=== PATIENT | male | born 1940 | race Caucasian/White ===

== ENCOUNTER 2022-05-23 03:04 | Inpatient (IN) | payer OTHER, MEDICAID ==
[~2022-05-23] VITALS: Ht 175.3 cm; Wt 65.8 kg
[2022-05-23 03:08] VITALS: BP 138/70
--- NOTE | 2022-05-23 03:08 | NUR ---
Patient placed on bed 11.
[2022-05-23] MEDS ORDERED: NACL 0.9% 1,000 ML IV ONE (03:10)
[2022-05-23] MEDS ORDERED: FLUT1POW3 IH (03:21)
[2022-05-23] MEDS ORDERED: ALEN70TA85 PO (03:21)
[2022-05-23] MEDS ORDERED: AMLO10TA PO (03:21)
[2022-05-23] MEDS ORDERED: CARB1TAB35 PO (03:21)
[2022-05-23] MEDS ORDERED: OMEP20EC11 PO (03:21)
[2022-05-23] MEDS ORDERED: ESCI-28 PO (03:21)
[2022-05-23] MEDS ORDERED: NORT10CA17 PO (03:21)
[2022-05-23] MEDS ORDERED: TRAM50TA3 PO (03:21)
[2022-05-23] MEDS ORDERED: FINA5TAB1 PO (03:21)
[2022-05-23] MEDS ORDERED: DOXA4TAB PO (03:21)
[2022-05-23 03:31] LABS: BASOPHILS % (AUTO) 0.5 % (0.0-2.0); EOSINOPHILS % (AUTO) 0.1 % (0.0-4.0); HEMATOCRIT 39.9 % (36-52); HEMOGLOBIN 13.6 g/dL (12.0-18.0); LYMPHOCYTES # (AUTO) 1.3 K/uL (2.0-11.5); LYMPHOCYTES % (AUTO) 17.4 % (20.5-51.1); MEAN CORPUSCULAR HEMOGLOBIN 32 pg (27-31); MEAN CORPUSCULAR HGB CONC 34 g/dL (33-37); MEAN CORPUSCULAR VOLUME 93.7 fL (80-94); MONOCYTES # (AUTO) 1.2 K/uL (0.8-1.0); MONOCYTES % (AUTO) 15.8 % (1.7-9.3); NEUTROPHILS % (AUTO) 66.2 % (42.2-75.2); PLATELET COUNT (AUTO) 253 K/uL (140-450); RED BLOOD CELL COUNT(AUTO) 4.26 MIL/uL (4.20-6.10); RED CELL DISTRIBUTION WIDTH 13.1 % (11.6-13.7); WHITE BLOOD COUNT (AUTO) 7.5 K/uL (4.8-10.8)
[2022-05-23 03:38] LABS: ALBUMIN 3.1 g/dL (3.4-5.0); ANION GAP 10.2 (8-16); ASPARTATE AMINOTRANSFERASE 30 U/L (15-37); CARBON DIOXIDE 29.3 mmol/L (21-32); CHLORIDE 101 mmol/L (98-107); CREATININE 1.2 mg/dL (0.6-1.3); GLUCOSE 100 mg/dL (74-106); POTASSIUM 4.5 mmol/L (3.5-5.1); SODIUM SERUM 136 mmol/L (136-145); TOTAL BILIRUBIN 0.3 mg/dL (0.0-1.0); UREA NITROGEN, BLOOD 24 mg/dL (7-18)
--- NOTE | 2022-05-23 04:07 | NUR ---
URINE COLLECTED AND WALKED TO LAB
[2022-05-23 04:10] LABS: APPEARANCE,URINE HAZY (CLEAR); BILIRUBIN,URINE NEGATIVE (NEGATIVE); BLOOD, URINE 3+ (NEGATIVE); COLOR,URINE BROWN (YELLOW); LEUKOCYTE ESTERASE ,URINE NEGATIVE (NEGATIVE); NITRITE, URINE NEGATIVE (NEGATIVE); UGLUCOSE NEGATIVE (NEGATIVE)
[2022-05-23] MEDS ORDERED: HYDROcodone/APAP 5/325 MG 1 TAB TAB PO ONE (04:10)
[2022-05-23 04:14] LABS: RBC,URINE TOO NUMEROUS TO COUN /HPF (0-5); WBC,URINE 0-5 /HPF (0-5)
[2022-05-23] MEDS ORDERED: cefTRIAXone 1,000 MG VIAL ONE (04:32)
[2022-05-23] MEDS ORDERED: MORPHINE SULFATE 2 MG/ML SYR IVP PRN ×2 (04:40→07:05)
--- NOTE | 2022-05-23 04:44 | NUR ---
SWABS COLLECTED AND WALKED TO LAB
--- NOTE | 2022-05-23 06:21 | NUR ---
Patient will be admitted to care of [facility] [place]. Admited to MED-SUR[facility]. Will go to room 115. Belongings list completed. Report to JERONIMO JOYCE.
[2022-05-23 06:43] VITALS: BP 118/60
--- NOTE | 2022-05-23 06:45 | NUR ---
RECEIVED PT FROM ER / AUDREY , REMIGIO , BLIND , TRANSFER TO BED SAFELY . IV SITE INTACT AND PATENT , DENIES PAIN AT THIS TIME , O2 SAT WNL - RA , PLAN OF CARE DISCUSSED AND VERBALIZES UNDERSTANDING , PUT PT ON FALL PREC. PROTOCOL , CALL LIGHT WITHIN REACH , BED ALARM ON . WILL ENDORSE .
[2022-05-23] MEDS ORDERED: LORazepam 2 MG/ML VIAL IVP PRN (07:05)
[2022-05-23] MEDS ORDERED: ZOLPIDEM 10 MG TAB PO PRN (07:05)
[2022-05-23] MEDS ORDERED: MAG SULF 2000 MG/WATER PREMIX 50 ML IV PRN (07:05)
[2022-05-23] MEDS ORDERED: DOCUSATE SODIUM 100 MG GELCAP PO PRN (07:05)
[2022-05-23] MEDS ORDERED: ACETAMINOPHEN 325 MG TAB PO PRN (07:05)
[2022-05-23] MEDS ORDERED: ONDANSETRON 4 MG/2 ML VIAL IVP PRN (07:05)
[2022-05-23] MEDS ORDERED: POTASSIUM CHLORIDE 10 MEQ TABER PO PRN (07:05)
--- NOTE | 2022-05-23 07:16 | NUR ---
ENDORSED PT FOR CONT. OF CARE .
--- NOTE | 2022-05-23 07:20 | NUR ---
RECIEVED REPORT FROM COMPANION CAREGIVER NURSE FOR CONTINUITY OF CARE. NO SIGNS OF DISTRESS AT THIS TIME OR LABORED BREATHING. PT IS A&OX3, IS ON RA WITH DIMISHED LUNG SOUNDS AND A COUGH, SKIN INTACT, PT IS BLIND BUT STILL AMBULATES WITH MINIMAL ASSISTANCE. PT HAS A JEAN IN PLACE. IV 18G LAC THAT IS PATENT AND INTACT. TWO SIDE RAILS UP, BED IN LOW POSITION, CALL LIGHT WITHIN REACH AND ALL SAFETY MEASURES IN PLACE AT THIS TIME. WILL CONTINUE TO MONITOR.
[2022-05-23 08:00] VITALS: BP 145/82
--- NOTE | 2022-05-23 08:20 | NUR ---
PATIENT HAS BEEN SCREENED AND CATEGORIZED LOW NUTRITION RISK. PATIENT WILL BE SEEN WITHIN 7 DAYS OF ADMISSION. 05/23/22-05/30/[address]
[2022-05-23] MEDS: CARBIDOPA/LEVODOPA 10/100 MG 1 TAB PO SCH ×2 (09:00→21:30)
[2022-05-23] MEDS: ESCITALOPRAM 20 MG TAB PO SCH (09:54)
[2022-05-23] MEDS: FINASTERIDE 5 MG TAB PO SCH (09:58)
[2022-05-23] MEDS: amLODIPine 5 MG TAB PO SCH (09:58)
[2022-05-23] MEDS: OSELTAMIVIR PHOSPHATE 75 MG CAP PO SCH (09:59)
--- NOTE | 2022-05-23 10:00 | NUR ---
PT REFUSED MORNING MEDICATION AND STATED HE WILL ONLY TAKE NORCO.
--- NOTE | 2022-05-23 11:00 | NUR ---
PT CALLED OUT COMPLAINING OF PAIN FROM JEAN CATH. NOTICED BLOOD IN TUBE. ASKED DR IF SHE WANTED TO REMOVE AND DR STATED YES AND TO CONSULT UROLOGY. ORDERED CONSULT AND REMOVED PTS JEAN CATH AT 1055.
[2022-05-23] MEDS ORDERED: HYDROcodone/APAP 7.5/325 MG 1 TAB ONE (12:25)
--- NOTE | 2022-05-23 15:50 | NUR ---
P.T. NOTES P.T. EVAL COMPLETED; REFER TO EVAL FOR DETAILS.
[2022-05-23 16:00] VITALS: BP 138/85
[2022-05-23] MEDS: HYDROcodone/APAP 7.5/325 MG 1 TAB PO PRN (19:08)
[2022-05-23 20:00] VITALS: BP 132/75
--- NOTE | 2022-05-23 20:15 | NUR ---
PT IS STABLE.VS STABLE.CALL LIGHT IN REACH.HE IS LEGALLY BLIND AND NEED HELP TO GO TO BATHROOM.SL PATENT.NO C/O PAIN NOW.
[2022-05-23] MEDS: NORTRIPTYLINE 10 MG CAP PO SCH (20:54)
[2022-05-23] MEDS: ZOLPIDEM 5 MG TAB PO PRN (20:54)
[2022-05-24 04:00] VITALS: BP 128/78
[2022-05-24] MEDS: HYDROcodone/APAP 7.5/325 MG 1 TAB PO PRN ×3 (06:14→18:54)
--- NOTE | 2022-05-24 06:42 | NUR ---
SLEPT WELL.NO DISTRESS NOTED NOW.PAIN MED GIVEN FOR BACK PAIN.
--- NOTE | 2022-05-24 07:05 | NUR ---
RECEIVED PT FROM MARINE SERVICE OPERATOR NURSE FOR CONTINUITY OF CARE. PT LAYING DOWN IN BED. AROUSABLE TO VOICE. RESPIRATIONS EVEN AND UNLABORED ON RA. IV ON LEFT A/C 18G, SALINE LOCK. NO DISTRESS NOTED. PT ORIENTED TO CALL LIGHT. ALL SAFETY PRECAUTIONS IN PLACE.
[2022-05-24] MEDS: ESCITALOPRAM 20 MG TAB PO SCH ×2 (08:39→09:00)
[2022-05-24] MEDS: OSELTAMIVIR PHOSPHATE 75 MG CAP PO SCH ×2 (08:40→09:00)
[2022-05-24] MEDS: FINASTERIDE 5 MG TAB PO SCH ×2 (08:40→09:00)
[2022-05-24] MEDS: amLODIPine 5 MG TAB PO SCH ×2 (08:40→09:00)
[2022-05-24] MEDS: CARBIDOPA/LEVODOPA 10/100 MG 1 TAB PO SCH ×3 (08:41→21:00)
--- NOTE | 2022-05-24 09:03 | NUR ---
PT REFUSED MORNING MEDICATIONS. STATES HE IS NOT GOING TO TAKE THEM BECAUSE HE IS BEING PRESCRIBED MEDICATION FOR BEDBUGS AND DOES NOT WANT TO TAKE IT. EDUCATED PT ON MEDICATIONS PRESCRIBED. INFORMED HIM HE DOES NOT HAVE A MEDICATION FOR BEDBUGS. PT STATES HE IS NOT HERE FOR MEDS BUT FOR XRAY EXAMS DUE TO PAIN ON SPINE. DR MARTI MADE AWARE.
[2022-05-24 09:09] LABS: BASOPHILS % (AUTO) 0.9 % (0.0-2.0); EOSINOPHILS # (AUTO) 0.1 K/uL (0-0.4); EOSINOPHILS % (AUTO) 1.9 % (0.0-4.0); HEMATOCRIT 38.8 % (36-52); LYMPHOCYTES # (AUTO) 1.3 K/uL (2.0-11.5); MEAN CORPUSCULAR HEMOGLOBIN 31 pg (27-31); MEAN CORPUSCULAR HGB CONC 34 g/dL (33-37); MEAN CORPUSCULAR VOLUME 92.8 fL (80-94); MONOCYTES # (AUTO) 0.8 K/uL (0.8-1.0); MONOCYTES % (AUTO) 20.4 % (1.7-9.3); NEUTROPHILS # (AUTO) 1.6 K/uL (1.8-7.7); NEUTROPHILS % (AUTO) 41.8 % (42.2-75.2); PLATELET COUNT (AUTO) 256 K/uL (140-450); RED BLOOD CELL COUNT(AUTO) 4.18 MIL/uL (4.20-6.10); RED CELL DISTRIBUTION WIDTH 13.1 % (11.6-13.7); WHITE BLOOD COUNT (AUTO) 3.8 K/uL (4.8-10.8)
[2022-05-24 09:25] LABS: ANION GAP 10.5 (8-16); CARBON DIOXIDE 26.9 mmol/L (21-32); CHLORIDE 103 mmol/L (98-107); GLUCOSE 93 mg/dL (74-106); POTASSIUM 3.4 mmol/L (3.5-5.1); SODIUM SERUM 137 mmol/L (136-145); UREA NITROGEN, BLOOD 14 mg/dL (7-18)
[2022-05-24 16:00] VITALS: BP 110/74
[2022-05-24] MEDS: ZOLPIDEM 5 MG TAB PO PRN (19:13)
--- NOTE | 2022-05-24 19:30 | NUR ---
RECEIVED REPORT FROM DAY SHIFT NURSE BROOKS FOR CONTINUITY OF CARE. PATIENT IS A&O X3, YEMENI SPEAKING. PATIENT IS ON ROOM AIR, BREATHING IS NORMAL WITH SYMMETRICAL RISE AND FALL OF CHEST. IV IS A 18G LAC, NO FLUIDS RUNNING AT THIS TIME (SALINE LOCKED). PATIENT IS LEGALLY BLIND IN BOTH EYES. PATIENT IS SITTING UP IN BED. BED IS IN LOWEST POSITION, WHEELS LOCKED, CALL LIGHT IN PLACE. WILL CONTINUE TO OBSERVE PATIENT.
[2022-05-24 20:00] VITALS: BP 116/63
[2022-05-24] MEDS: NORTRIPTYLINE 10 MG CAP PO SCH (21:00)
--- NOTE | 2022-05-24 21:50 | NUR ---
PATIENT REFUSED 2000 MEDICATION. PATIENT ONLY WANTS TO RECEIVED HIS NORCO. NORCO IS Q6H AND WAS LAST GIVEN AT 1854. EXPLAINED TO PATIENT, WITH EDUCATION ADMINISTRATORKevyn CARRASQUILLO TRANSLATING, THAT NORCO IS NOT DUE UNTIL 0054. PATIENT STATED THAT HE DOESN'T WANT IT UNTIL 0600, BECAUSE HE TAKES HIS NORCO EVERYDAY AT 12 AND 6. PATIENT CONTINUED TO SIT ON THE SIDE OF BED. WILL CONTINUE TO OBSERVE PATIENT.
--- NOTE | 2022-05-25 02:00 | NUR ---
SPOKE WITH PATIENT WITH ISIAH CORDERO. PATIENT WAS SITTING IN A CHAIR WITH A TOWEL WRAPPED AROUND HIM. PATIENT STATED THAT HE WAS HARD OF HEARING IN BOTH EARS AND USES HEARING AIDS, BUT LEFT THEM AT HOME. PATIENT STATES THAT HE ONLY WANTS HIS NORCO MEDICATION FOR HIS PAIN, BUT WANTS IT AT 6 O'CLOCK AND 12 O'CLOCK EACH DAY. INFORMED THE PATIENT THAT I WILL DO THE BEST I CAN TO GIVE HIM THE MEDICATION AT THE TIME HE REQUESTS AND WILL INFORM THE NEXT SHIFT NURSE OF THE SITUATION. PATIENT THANKED ME. I GOT THE PATIENT ANOTHER BLANKET AND HE WENT BACK INTO HIS BED REFUSING ASSISTANCE. WILL CONTINUE TO OBSERVE PATIENT.
[2022-05-25 04:00] VITALS: BP 115/65
[2022-05-25] MEDS: HYDROcodone/APAP 7.5/325 MG 1 TAB PO PRN ×3 (06:04→17:50)
--- NOTE | 2022-05-25 06:08 | NUR ---
ADMINISTERED NORCO TO PATIENT FOR PAIN. PATIENT TOLERATED MEDICATION WELL. PATIENT LAID DOWN TO GO TO SLEEP AFTER MEDICATION WAS ADMINISTERED. BREATHING WAS NORMAL WITH SYMMETRICAL RISE AND FALL OF CHEST. WILL CONTINUE TO OBSERVE PATIENT.
--- NOTE | 2022-05-25 07:45 | NUR ---
ENDORSED TO DAY SHIFT NURSE NAHOMY FOR CONTINUITY OF CARE. PATIENT IS STABLE.
[2022-05-25 08:00] VITALS: BP 141/60
[2022-05-25 08:44] LABS: ANION GAP 9.5 (8-16); CARBON DIOXIDE 28.3 mmol/L (21-32); CHLORIDE 106 mmol/L (98-107); CREATININE 0.9 mg/dL (0.6-1.3); GLUCOSE 89 mg/dL (74-106); POTASSIUM 3.8 mmol/L (3.5-5.1); SODIUM SERUM 140 mmol/L (136-145); UREA NITROGEN, BLOOD 11 mg/dL (7-18)
[2022-05-25 09:00] LABS: HEMATOCRIT 37.6 % (36-52); HEMOGLOBIN 12.5 g/dL (12.0-18.0); MEAN CORPUSCULAR HEMOGLOBIN 31 pg (27-31); MEAN CORPUSCULAR HGB CONC 33 g/dL (33-37); PLATELET COUNT (AUTO) 261 K/uL (140-450); RED BLOOD CELL COUNT(AUTO) 4.04 MIL/uL (4.20-6.10); WHITE BLOOD COUNT (AUTO) 2.7 K/uL (4.8-10.8)
[2022-05-25] MEDS: FINASTERIDE 5 MG TAB PO SCH (09:00)
[2022-05-25] MEDS: amLODIPine 5 MG TAB PO SCH (09:00)
[2022-05-25] MEDS: ESCITALOPRAM 20 MG TAB PO SCH (09:00)
[2022-05-25] MEDS: OSELTAMIVIR PHOSPHATE 75 MG CAP PO SCH (09:00)
[2022-05-25] MEDS: CARBIDOPA/LEVODOPA 10/100 MG 1 TAB PO SCH (09:00)
--- NOTE | 2022-05-25 09:35 | NUR ---
NURSE TRYING TO PASS MORNING AND EDUCATING PATIENT THAT HIS BLOOD PRESSURE HIGH, AND HE NEED MEDICATION FOR BLOOD PRESSURE, HIS ENLARGED PROSTATE, HIS FLU, AND PARKINSON'S DISEASE; BUT PATIENT INSISTENT THAT HE IS FINE AND WANTS TALK TO DOCTOR AND REFUSE ALL MEDICATION EXCEPT NORCO WHICH MUST GIVE AT 0600 AND 1200 (Q6HOUR) ON TIME FOR PAIN. OTHERWISE HE IS GOING TO LEAVE. WILL CONTINUE TO MONITOR.
[2022-05-25 10:13] LABS: EOSINOPHILS % (MANUAL) 7 % (0-4); LYMPHOCYTES % (MANUAL) 50 % (20-46); MONOCYTES % (MANUAL) 19 % (5-12)
[2022-05-25 16:00] VITALS: BP 140/78
[2022-05-25 17:53] VITALS: BP 140/78
--- NOTE | 2022-05-25 18:22 | NUR ---
DISCHARGE PATIENT HOME WITH STABLE CONDITION PER PATIENT REQUEST. DISCHARGE INSTRUCTION GIVE TO SIGNIFICANT OTHER; DISCHARGE CONSENT SIGN. IV ACCESS, WRIST BAND REMOVE PRO-DISCHARGE.
== END 2022-05-25 18:30 | disposition home or self-care (01) | DRG 552 ==
LOC: MED 03:04 → MMU 04:44 → MTU 06:15
PROVIDERS: ADMIT Family Medicine; ATTEND Family Medicine
DX: M54.9 Dorsalgia, unspecified (principal); N39.0 Urinary tract infection, site not specified; E44.1 Mild protein-calorie malnutrition; E83.51 Hypocalcemia; J10.1 Influenza due to other identified influenza virus with other respiratory manifestations; Z20.822 Contact with and (suspected) exposure to COVID-19; N40.1 Benign prostatic hyperplasia with lower urinary tract symptoms; R31.9 Hematuria, unspecified; G20 Parkinson's disease; F02.80 Dementia in other diseases classified elsewhere, unspecified severity, without behavioral disturbance, psychotic disturbance, mood disturbance, and anxiety; J44.9 Chronic obstructive pulmonary disease, unspecified; H54.8 Legal blindness, as defined in USA; I10 Essential (primary) hypertension; I70.0 Atherosclerosis of aorta; Z68.21 Body mass index [BMI] 21.0-21.9, adult
CPT/HCPCS: 36415; 71045; 76770; 80048; 80053; 81001; 83605; 83735; 85025; 87040; 87086; 93005; 96361; 96365; 97116; 97163-GP; 99285; J0696; J2270; J2405; J7060; Q0092